=== PATIENT | male | born 1955 | race Caucasian/White ===

== ENCOUNTER 2018-05-30 22:09 | Emergency (ER) | payer MEDICAID, OTHER ==
[2018-05-30] MEDS ORDERED: Diltiazem 25 MG/5 ML SDV IVPUSH ONE (22:49)
[2018-05-30] MEDS ORDERED: Ibuprofen 600 MG Tab PO ONE (22:51)
[2018-05-30] MEDS ORDERED: Sodium Chloride 0.9% 1,000 ML IV SCH ×2 (23:15→23:45)
[2018-05-30] MEDS ORDERED: Acetaminophen 325 MG Tab PO ONE (23:39)
[2018-05-30] MEDS ORDERED: Doxycycline 100 MG in Sodium Chloride 0.9% 100 ML IV ONE (23:41)
--- NOTE | 2018-05-31 00:49 | EDM.PDOC ---
ED HPI GENERAL MEDICAL PROBLEM - General Chief Complaint: Fever Stated Complaint: FEVER,CHILLS,DIZZINESS,BODY ACHES Time Seen by Provider: 05/30/18 22:40 Source of Information: Reports: Patient History Limitations: Reports: No Limitations - History of Present Illness INITIAL COMMENTS - FREE TEXT/NARRATIVE: pt arrived with a temp of 103.9. He has been chilling and having a fever for the past 36 hours. He has not vomited or had diarrheas. He does not have a known tick exposure. He has not been coughing or having resp symptoms. Onset: Gradual, Other (over the past 36 hours. ) Duration: Hour(s): Location: Reports: Generalized Associated Symptoms: Reports: Diaphoresis, Fever/Chills, Loss of Appetite, Malaise, Weakness - Related Data Allergies Allergy/AdvReac Type Severity Reaction Status Date / Time No Known Allergies Allergy Verified 10/28/16 10:11 Home Meds: Home Meds Acetaminophen [Tylenol Arthritis] 2 tab PO ASDIRECTED PRN 10/27/13 [History] Aspirin 325 mg PO DAILY 10/27/13 [History] Ibuprofen [Motrin] 2 tab PO DAILY 10/27/13 [History] Pramipexole Di-HCl [Mirapex] 1 mg PO BEDTIME 10/27/13 [History] Tamsulosin [Tamsulosin 24 Hr] 0.4 mg PO BEDTIME 05/30/18 [History] Past Medical History Cardiovascular History: Reports: Afib Respiratory History: Reports: Sleep Apnea Other Respiratory History: c-pap Genitourinary History: Reports: Prostate Disorder Musculoskeletal History: Reports: Fracture - Infectious Disease History Infectious Disease History: Reports: Chicken Pox - Past Surgical History HEENT Surgical History: Reports: Naso-Sinus Surgery, Oral Surgery GI Surgical History: Reports: Appendectomy, Colonoscopy Neurological Surgical History: Reports: Spinal Fusion Musculoskeletal Surgical History: Reports: Knee Replacement Social & Family History - Tobacco Use Smoking Status *Q: Never Smoker - Caffeine Use Caffeine Use: Reports: Coffee, Soda Caffeine Use Comment: occasional caffeine use - Alcohol Use Days Per Week of Alcohol Use: 7 Number of Drinks Per Day: 2 Total Drinks Per Week: 14 - Recreational Drug Use Recreational Drug Use: No - Living Situation & Occupation Living situation: Reports: , with Spouse Occupation: Employed ED ROS GENERAL - Review of Systems Review Of Systems: See Below Constitutional: Reports: Fever, Chills HEENT: Reports: No Symptoms Respiratory: Reports: No Symptoms Cardiovascular: Reports: Other (pt has no chest pain. ) Endocrine: Reports: No Symptoms GI/Abdominal: Reports: No Symptoms : Reports: No Symptoms Musculoskeletal: Reports: No Symptoms Skin: Reports: No Symptoms ED EXAM, SEPSIS - Physical Exam Exam: See Below Text/Narrative:: pt arrived with a fever and chjills. He was found to be in atrial fib. He has a past history of atrial fib. Exam Limited By: No Limitations General Appearance: Alert, Anxious, Moderate Distress, Other (pupils are equal and reactive. ) Ears: Normal TMs Nose: Normal Inspection Throat/Mouth: Normal Inspection Head: Atraumatic Neck: Normal Inspection Respiratory/Chest: No Respiratory Distress Cardiovascular: Irregularly Irregular GI/Abdominal Exam: Soft (Male) Exam: Deferred Rectal (Males) Exam: Deferred Back: Normal Inspection Extremities: Normal Inspection Neurological: Alert, Oriented, Normal Cognition Skin: Warm Course - Vital Signs Last Recorded V/S: Last Vital Signs Temp 36.2 C 05/31/18 06:15 Pulse 93 05/31/18 04:49 Resp 13 05/31/18 06:15 BP 116/71 05/31/18 06:15 Pulse Ox 96 05/31/18 06:15 - Orders/Labs/Meds Labs: Laboratory Tests 05/30/18 05/30/18 05/30/18 Range/Units 22:42 22:52 22:52 WBC 11.5 H (4.5-11.0) K/uL RBC 4.57 (4.30-5.90) M/uL Hgb 13.4 (12.0-15.0) g/dL Hct 39.7 L (40.0-54.0) % MCV 87 (80-98) fL MCH 29 (27-31) pg MCHC 34 (32-36) % Plt Count 144 L (150-400) K/uL Neut % (Auto) 96 H (36-66) % Lymph % (Auto) 2 L (24-44) % [place] % (Auto) 2 (2-6) % Eos % (Auto) 0 L (2-4) % Baso % (Auto) 0 (0-1) % APTT (27.0-36.0) sec Sodium 135 L (140-148) mmol/L Potassium 3.4 L (3.6-5.2) mmol/L Chloride 103 (100-108) mmol/L Carbon Dioxide 23 (21-32) mmol/L Anion Gap 12.4 (5.0-14.0) mmol/L BUN 22 H (7-18) mg/dL Creatinine 1.2 (0.8-1.3) mg/dL Est Cr Clr Drug Dosing 64.64 mL/min Estimated GFR (MDRD) > 60 (>60) Glucose 148 H (74-106) mg/dL Lactic Acid (0.4-2.0) mmol/L Calcium 8.3 L (8.5-10.1) mg/dL Total Bilirubin 1.0 D (0.2-1.0) mg/dL AST 27 (15-37) U/L ALT 35 (12-78) U/L Alkaline Phosphatase 69 (46-116) U/L Troponin I (0.000-0.056) ng/mL C-Reactive Protein 14.98 H (0.0-0.3) mg/dL Total Protein 6.8 (6.4-8.2) g/dL Albumin 3.0 L (3.4-5.0) g/dL Globulin 3.8 H (2.3-3.5) g/dL Albumin/Globulin Ratio 0.8 L (1.2-2.2) Urine Color Urine Appearance Urine pH (4.5-8.0) Ur Specific [place] (1.008-1.030) Urine Protein (NEGATIVE) mg/dL Urine Glucose (UA) (NEGATIVE) mg/dL Urine Ketones (NEGATIVE) mg/dL Urine Occult Blood (NEGATIVE) Urine Nitrite (NEGAITVE) Urine Bilirubin (NEGATIVE) Urine Urobilinogen (NORMAL) mg/dL Ur Leukocyte Esterase (NEGATIVE) Urine RBC (0-5) Urine WBC (0-5) Ur Epithelial Cells Amorphous Sediment Urine Bacteria Urine Mucus Urine Other 05/30/18 05/30/18 05/30/18 Range/Units 23:07 23:14 23:52 WBC (4.5-11.0) K/uL RBC (4.30-5.90) M/uL Hgb (12.0-15.0) g/dL Hct (40.0-54.0) % MCV (80-98) fL MCH (27-31) pg MCHC (32-36) % Plt Count (150-400) K/uL Neut % (Auto) (36-66) % Lymph % (Auto) (24-44) % [place] % (Auto) (2-6) % Eos % (Auto) (2-4) % Baso % (Auto) (0-1) % APTT (27.0-36.0) sec Sodium (140-148) mmol/L Potassium (3.6-5.2) mmol/L Chloride (100-108) mmol/L Carbon Dioxide (21-32) mmol/L Anion Gap (5.0-14.0) mmol/L BUN (7-18) mg/dL Creatinine (0.8-1.3) mg/dL Est Cr Clr Drug Dosing mL/min Estimated GFR (MDRD) (>60) Glucose (74-106) mg/dL Lactic Acid 1.4 (0.4-2.0) mmol/L Calcium (8.5-10.1) mg/dL Total Bilirubin (0.2-1.0) mg/dL AST (15-37) U/L ALT (12-78) U/L Alkaline Phosphatase (46-116) U/L Troponin I < 0.017 (0.000-0.056) ng/mL C-Reactive Protein (0.0-0.3) mg/dL Total Protein (6.4-8.2) g/dL Albumin (3.4-5.0) g/dL Globulin (2.3-3.5) g/dL Albumin/Globulin Ratio (1.2-2.2) Urine Color Yellow Urine Appearance Slightly cloudy Urine pH 5.0 (4.5-8.0) Ur Specific [place] 1.020 (1.008-1.030) Urine Protein 30 H (NEGATIVE) mg/dL Urine Glucose (UA) Normal (NEGATIVE) mg/dL Urine Ketones Negative (NEGATIVE) mg/dL Urine Occult Blood Large (NEGATIVE) Urine Nitrite Negative (NEGAITVE) Urine Bilirubin Small (NEGATIVE) Urine Urobilinogen 4 (NORMAL) mg/dL Ur Leukocyte Esterase Negative (NEGATIVE) Urine RBC 0-5 (0-5) Urine WBC 0-5 (0-5) Ur Epithelial Cells Not seen Amorphous Sediment Not seen Urine Bacteria Not seen Urine Mucus Many Urine Other 05/31/18 Range/Units 01:56 WBC (4.5-11.0) K/uL RBC (4.30-5.90) M/uL Hgb (12.0-15.0) g/dL Hct (40.0-54.0) % MCV (80-98) fL MCH (27-31) pg MCHC (32-36) % Plt Count (150-400) K/uL Neut % (Auto) (36-66) % Lymph % (Auto) (24-44) % [place] % (Auto) (2-6) % Eos % (Auto) (2-4) % Baso % (Auto) (0-1) % APTT 31.7 (27.0-36.0) sec Sodium (140-148) mmol/L Potassium (3.6-5.2) mmol/L Chloride (100-108) mmol/L Carbon Dioxide (21-32) mmol/L Anion Gap (5.0-14.0) mmol/L BUN (7-18) mg/dL Creatinine (0.8-1.3) mg/dL Est Cr Clr Drug Dosing mL/min Estimated GFR (MDRD) (>60) Glucose (74-106) mg/dL Lactic Acid (0.4-2.0) mmol/L Calcium (8.5-10.1) mg/dL Total Bilirubin (0.2-1.0) mg/dL AST (15-37) U/L ALT (12-78) U/L Alkaline Phosphatase (46-116) U/L Troponin I (0.000-0.056) ng/mL C-Reactive Protein (0.0-0.3) mg/dL Total Protein (6.4-8.2) g/dL Albumin (3.4-5.0) g/dL Globulin (2.3-3.5) g/dL Albumin/Globulin Ratio (1.2-2.2) Urine Color Urine Appearance Urine pH (4.5-8.0) Ur Specific [place] (1.008-1.030) Urine Protein (NEGATIVE) mg/dL Urine Glucose (UA) (NEGATIVE) mg/dL Urine Ketones (NEGATIVE) mg/dL Urine Occult Blood (NEGATIVE) Urine Nitrite (NEGAITVE) Urine Bilirubin (NEGATIVE) Urine Urobilinogen (NORMAL) mg/dL Ur Leukocyte Esterase (NEGATIVE) Urine RBC (0-5) Urine WBC (0-5) Ur Epithelial Cells Amorphous Sediment Urine Bacteria Urine Mucus Urine Other Meds: Medications Discontinued Medications Generic Name Dose Route Start Last Admin Trade Name Trayq PRN Reason Stop Dose Admin Acetaminophen 650 mg 05/30/18 23:39 05/31/18 00:01 Tylenol PO 05/30/18 23:40 650 mg NOW ONE Administration Diltiazem HCl 10 mg 05/30/18 22:49 05/30/18 23:03 Diltiazem IVPUSH 05/30/18 22:50 10 mg ONETIME ONE Administration Sodium Chloride 1,000 mls @ 999 mls/hr 05/30/18 23:15 05/30/18 23:20 Normal Saline IV 999 mls/hr ASDIRECTED MONAE Administration Doxycycline Hyclate 100 mg/ 100 mls @ 100 mls/hr 05/30/18 23:41 05/30/18 23: 58 Sodium Chloride IV 05/31/18 00:40 100 mls/hr ONETIME ONE Administration Diltiazem HCl 125 mg/ Dextrose 125 mls @ 5 mls/hr 05/30/18 23:45 05/31/18 05: 57 /Water IV 05/31/18 23:44 Not Given TITRATE MNOAE Protocol 5 MG/HR Sodium Chloride 1,000 mls @ 999 mls/hr 05/30/18 23:45 05/31/18 00:18 Normal Saline IV 999 mls/hr ASDIRECTED MONAE Administration Sodium Chloride 1,000 mls @ 350 mls/hr 05/31/18 01:15 05/31/18 01:32 Normal Saline IV 350 mls/hr ASDIRECTED MONAE Administration Ibuprofen 600 mg 05/30/18 22:51 05/30/18 23:02 Motrin PO 05/30/18 22:52 600 mg ONETIME ONE Administration - Re-Assessments/Exams Free Text/Narrative Re-Assessment/Exam: 05/31/18 00:51 wbc is 11,000. His platlets are low at 141. His chems look good. Tick studies were drawn. He is on his second liter of fluid. He has been given tylenol and motrin. He has a bp that remains low 90/60. His bp is usuially 120/60. He his temp is now 101. he was given doxycline 100mg iv. He was given cardizem 10 mg puish but the drip has not been started becasuse of his bp./ Departure - Departure Time of Disposition: 06:50 Disposition: DC/Tfer to Acute Hospital 02 Condition: Fair Clinical Impression: Atrial fibrillation, Fever, At high risk for tick borne illness - Discharge Information Referrals: Billy Pitts MD [Primary Care Provider] - Forms: ED Department Discharge Care Plan Goals: transfer to [facility], no beds available at [facility].
[2018-05-31] MEDS ORDERED: Sodium Chloride 0.9% 1,000 ML IV SCH (01:15)
[2018-05-31 06:37] VITALS: BP 116/71
--- NOTE | 2018-06-02 08:34 | CR ---
CHEST: 2 view CLINICAL HISTORY:Fever COMPARISON: 2016 FINDINGS: Heart and pulmonary vascularity appear normal. No infiltrate effusion or pneumothorax seen . IMPRESSION: No acute cardiopulmonary process or significant change prior study
[2018-06-04 10:24] LABS: LYME IGG/IGM AB <0.91 ISR (0.00-0.90)
[2018-06-04 17:11] LABS: BABESIA MICROTI IGG <1:10 (Neg:<1:10); BABESIA MICROTI IGM <1:10 (Neg:<1:10)
== END 2018-05-31 07:32 ==
LOC: JP.ED 22:09
DX: A93.8 Other specified arthropod-borne viral fevers (principal); I48.91 Unspecified atrial fibrillation; Z79.899 Other long term (current) drug therapy
CPT/HCPCS: 36415; 71046; 80053; 81001; 83605; 84484; 85025; 85730; 86140; 86666; 86753; 87040; 93005; 96361; 96365; 96375; 99285; A9270; J3490; J7030; 86618

== ENCOUNTER 2024-09-05 05:30 | Emergency (ER) | payer MEDICARE, BC ==
[2024-09-05 05:46] VITALS: BP 142/79; PULSE 77
[2024-09-05 06:35] LABS: BASOPHILS PERCENT AUTO 0.1 % (0.1-1.3); EOSINOPHILS ABSOLUTE AUTO 0.04 K/uL (0.00-0.40); EOSINOPHILS PERCENT AUTO 0.2 % (0.0-5.4); HEMOGLOBIN 14.1 g/dL (12.9-16.9); IMMATURE GRAN ABSOLUTE AUTO 0.05 K/uL (0.00-0.23); IMMATURE GRAN PERCENT AUTO 0.3 % (0.0-0.7); LYMPHOCYTES ABSOLUTE AUTO 0.73 K/uL (0.8-3.3); LYMPHOCYTES PERCENT AUTO 4.5 % (11.4-47.7); MEAN CORPUSCULAR HEMOGLOBIN 31.1 pg (31.6-35.5); MEAN CORPUSCULAR HGB CONC 34.4 g/dL (31.6-35.5); MEAN CORPUSCULAR VOLUME 90.3 fL (81.4-99.0); MONOCYTES ABSOLUTE AUTO 1.02 K/uL (0.20-0.90); MONOCYTES PERCENT AUTO 6.3 % (3.3-12.6); NEUTROPHILS ABSOLUTE AUTO 14.21 K/uL (1.0-7.6); NEUTROPHILS PERCENT AUTO 88.6 % (40.0-78.1); PLATELET COUNT,PLT 167 K/uL (130-375); RED BLOOD CELL COUNT 4.54 M/uL (4.14-5.76); WHITE BLOOD CELL COUNT,WBC 16.1 K/uL (3.2-11.0)
[2024-09-05 06:38] LABS: BASOPHILS ABSOLUTE AUTO 0.02 K/uL (0.00-0.10)
[2024-09-05] MEDS: Iopamidol 612 MG/ML 100 ML Bottle IV PRN (06:50)
[2024-09-05] MEDS: Sodium Chloride 0.9% 10 ML Syringe FLUSH PRN (06:50)
[2024-09-05] MEDS: Sodium Chloride 0.9% 80 ML IV ONE (06:50)
[2024-09-05 06:53] LABS: BLOOD UREA NITROGEN,BUN 17 mg/dL (7-18); C-REACTIVE PROTEIN 5.99 mg/dL (<0.50); CALCIUM 9.7 mg/dL (8.5-10.1); CARBON DIOXIDE,CO2 27 mmol/L (21-32); CHLORIDE,CL 100 mmol/L (100-108); ESTIMATED GFR 82 mL/min (>60); GLUCOSE RANDOM 126 mg/dL (74-106); POTASSIUM,K 3.9 mmol/L (3.6-5.2); SODIUM,NA 136 mmol/L (140-148)
[2024-09-05 06:54] LABS: ANION GAP 12.9 mmol/L (5.0-14.0)
== END 2024-09-05 08:15 | disposition home or self-care (01) ==
LOC: JP.ED 05:30
DX: K11.20 Sialoadenitis, unspecified (principal); M19.90 Unspecified osteoarthritis, unspecified site; Z79.899 Other long term (current) drug therapy
CPT/HCPCS: 36415; 70491; 80048; 85025; 86140; 87651; 99284; J3490; Q9967